=== PATIENT | male | born 1970 | race Caucasian/White ===

== ENCOUNTER 2023-12-09 18:21 | Emergency (ER) | payer OTHER ==
[~2023-12-09] VITALS: Ht 175.3 cm; Wt 93.2 kg
[~2023-12-09 18:21] MED LIST: NOCURR
[2023-12-09] MEDS ORDERED: GLIP5TAB16 PO (18:25)
[2023-12-09] MEDS ORDERED: METF-1211 PO (18:25)
[2023-12-09 18:26] VITALS: TEMP 97.2
[2023-12-09 19:42] LABS: APPEARANCE,URINE CLEAR (CLEAR); BILIRUBIN,URINE NEGATIVE (NEGATIVE); COLOR,URINE COLORLESS (YELLOW); GLUCOSE, URINE (UA) >=1000 mg/dL (NEGATIVE); KETONES,URINE NEGATIVE (NEGATIVE); LEUKOCYTE ESTERASE ,URINE NEGATIVE (NEGATIVE); NITRATE,URINE NEGATIVE (NEGATIVE); OCCULT BLOOD,URINE NEGATIVE (NEGATIVE); PH,URINE 5.5 (5.0-8.0); PROTEIN,URINE NEGATIVE (NEGATIVE); SPECIFIC GRAVITIY, URINE 1.032 (1.003-1.030); UROBILINOGEN,URINE <=1.0 mg/dL (<=1.0)
[2023-12-09 20:03] LABS: BASOPHILS % (AUTO) 0.6 % (0.0-2.0); EOSINOPHILS % (AUTO) 1.4 % (1.0-6.0); HEMATOCRIT 42.1 % (41-53); HEMOGLOBIN 14.5 g/dL (13.5-17.5); LYMPHOCYTES # (AUTO) 1.8 K/uL (1.0-4.8); LYMPHOCYTES % (AUTO) 31.7 % (22.0-44.0); MEAN CORPUSCULAR HGB CONC 34.4 G/dL (31.0-37.0); MEAN CORPUSCULAR VOLUME 90 fL (80-100); MONOCYTES # (AUTO) 0.4 K/uL (0.1-1.0); MONOCYTES % (AUTO) 6.3 % (2.0-9.0); NEUTROPHILS # (AUTO) 3.5 K/uL (1.8-7.7); PLATELET COUNT (AUTO) 227 K/uL (150-450); RED BLOOD CELL COUNT(AUTO) 4.66 MIL/uL (4.50-5.90); RED CELL DISTRIBUTION WIDTH 12.4 % (11.5-14.5); WHITE BLOOD COUNT (AUTO) 5.8 K/uL (4.5-11.0)
[2023-12-09 20:11] LABS: ANION GAP 10 mmol/L (8-16); CARBON DIOXIDE 24 mmol/L (22-29); CHLORIDE 98 mmol/L (98-107); CREATININE 1.07 mg/dL (0.60-1.30); GLOMERULAR FILTR. RATE CALC > 60 mL/min (>60); POTASSIUM 3.8 mmol/L (3.5-5.1); SODIUM SERUM 132 mmol/L (136-145); UREA NITROGEN, BLOOD 17 mg/dL (7-18)
[2023-12-09 20:11] LABS: BACTERIA,URINE None Seen /HPF (None Seen); RBC,URINE None Seen /HPF (0-2); SQUAMOUS EPITHELIAL CELL,UR None Seen /LPF (None Seen); WBC,URINE None Seen /HPF (0-5)
[2023-12-09 20:13] LABS: GLUCOSE,RANDOM 455 mg/dL (70-110)
[2023-12-09] MEDS: SODIUM CHLORIDE 0.9% 1,000 ML IV ONE (20:37)
[2023-12-09] MEDS: INSULIN REGULAR, HUMAN 100 UNITS/ML IVP ONE (20:38)
[2023-12-09] MEDS: TraMADol HCL 50 MG TABLET PO ONE (20:58)
[2023-12-09] MEDS ORDERED: TRAM50TA5 PO (21:35)
[2023-12-09 21:38] VITALS: BP 139/78; PULSE 78; RESP 15; O2SAT 98
[2023-12-09 21:50] LABS: GLUCOMETER DEV NAME(LOC) ERT.5; GLUCOSE,POINT OF CARE 329 MG/DL (70-110)
== END 2023-12-09 22:46 | disposition home or self-care (01) ==
LOC: EMS 18:21
DX: N50.811 Right testicular pain (principal); E11.65 Type 2 diabetes mellitus with hyperglycemia; F17.210 Nicotine dependence, cigarettes, uncomplicated
CPT/HCPCS: 99285; 96374; 96361; 80048; 81001; 82009; 82962; 85025; 36415; 76870; J1815; J7030